=== PATIENT | male | born 1995 | race Caucasian/White ===

== ENCOUNTER 2018-03-20 19:42 | Emergency (ER) | payer MEDICAID, SELFPAY ==
[2018-03-20 19:43] VITALS: BP 119/75; PULSE 119; RESP 17; TEMP 37.1; O2SAT 99; BMI 18.3
--- NOTE | 2018-03-20 20:42 | ED.DCSUM_ITS ---
- ER Visit Summary Date of Service: 03/20/18 Chief Complaint: Sore throat History of Present Illness: The patient is a 22 M presenting with sore throat. He states this started yesterday. Patient is concerned because he kissed someone who was diagnosed with bronchitis. He has sore throat and painful swallowing. No difficulty swallowing. No fever. He has a mild dry cough. Denies other complaints. Physical Examination: Vitals are stable. Patient is afebrile. Alert no acute distress. HEENT exam mild pharyngeal erythema, uvula midline Neck is supple. No meningismus Lungs are clear and equal bilaterally. Heart is regular rate and rhythm. Extremities are unremarkable. Skin is warm and dry. No rash Remainder of exam is unremarkable. Emergency Department Course and Treatment: Rapid strep was negative. He is given Decadron p.o. Advised to follow-up with Dr. Orosco pianos and organs salesperson for no doc. Advised return to ED if worsening complaints. Disposition: Discharge home Impression: Pharyngitis This note was generated with [employer] dictation software. It may contain incorrect words, spelling, and punctuation that were not noted in review of the chart prior to signing ED Disposition - Plan for ED Patient: Chief Complaint: Sore Throat Referrals: Care Physician,No Primary [Primary Care Provider] -
--- NOTE | 2018-03-20 20:42 | ED.DEP ---
ED Disposition - Plan for ED Patient: Chief Complaint: Sore Throat Instructions: ED Pharyngitis Viral Referrals: Care Physician,No Primary [Primary Care Provider] - Eliseo Orosco III, MD [STAFF PHYSICIAN] -
[2018-03-20 20:49] VITALS: PULSE 102; RESP 16; O2SAT 97
== END 2018-03-20 20:49 | disposition home or self-care (01) ==
LOC: ED 20:04
PROVIDERS: Emergency Provider Emergency Medicine
DX: J02.9 Acute pharyngitis, unspecified (principal)
CPT/HCPCS: 87880; 99283

== ENCOUNTER 2018-08-31 04:36 | Emergency (ER) | payer SELFPAY ==
[2018-08-31 04:37] VITALS: BP 130/93; PULSE 99; RESP 18; TEMP 36.9; O2SAT 99; BMI 21.4
--- NOTE | 2018-08-31 04:43 | ED.DCSUM_ITS ---
- ER Visit Summary Date of Service: 08/31/18 Chief Complaint: Rash History of Present Illness: The patient is a 23 M presenting for evaluation secondary to rash. Patient states that he has broken out in a rash over the course of the last 2-3 days. He states that it is all on the right side of his chest and seems to be spreading towards the midline of his chest and midline of his back. He reports that it itches and juarez. He does endorse that he had a history of chickenpox as a child denies any exposures recently denies any fevers or oral lesions. Physical Examination: Skin exam shows evidence of a herpetic type rash that is dermatomal over the patient's left chest and back Test Results: None indicated Emergency Department Course and Treatment: Patient presented with a rash consistent with shingles. Patient will be treated with acyclovir. Disposition: Discharge Impression: 1. Herpes zoster This note was generated with [employer] dictation software. It may contain incorrect words, spelling, and punctuation that were not noted in review of the chart prior to signing ED Disposition - Plan for ED Patient: Disposition: Home or Assisted Living Chief Complaint: Rash Diagnosis: Shingles Instructions: ED Shingles Prescriptions: Acyclovir [Zovirax] 800 mg PO 5X/DAY #35 tab Referrals: Mira Umanzor [NON-STAFF] - As Needed
[2018-08-31 04:51] VITALS: BP 128/72; PULSE 95; RESP 18; O2SAT 98
[2018-08-31] MEDS: Acyclovir 800 MG Tablet PO (04:51)
== END 2018-08-31 04:54 | disposition home or self-care (01) ==
LOC: ED 04:53
PROVIDERS: Emergency Provider Emergency Medicine
DX: B02.9 Zoster without complications (principal)
CPT/HCPCS: 99282

== ENCOUNTER 2019-03-05 15:27 | Emergency (ER) | payer SELFPAY ==
[2019-03-05 15:28] VITALS: BP 131/75; PULSE 98; RESP 16; TEMP 36.7; O2SAT 98; BMI 20.9
--- NOTE | 2019-03-05 16:15 | ED.VISSUMM ---
- ER Visit Summary Date of Service: 03/05/19 Chief Complaint: Dental pain History of Present Illness: The patient is a 23 M who complains of a one-month history of right-sided dental pain. He states the right upper tooth is broken and has root exposed. He thinks the right bottom teeth are starting to decay also. He is been taking 1 [id number] ibuprofen a day. [facility]. Physical Examination: Vital signs are unremarkable. Patient sitting upright in bedside chair no acute distress. Head neck examination was no facial edema or erythema. Intraoral examination reveals right maxillary second molar to be broken on the posterior surface. There is no gum edema. He has small areas of caries on the right first and second molars on the mandibular surface. No gum edema. Uvula is midline. Test Results: [] Emergency Department Course and Treatment: Patient be treated with Naprosyn and Pen-Vee K, first doses given here. He is given a dental referral list. Treatment Plan: [] Disposition: Discharge Impression: Odontalgia This note was generated with [employer] dictation software. It may contain incorrect words, spelling, and punctuation that were not noted in review of the chart prior to signing ED Disposition - Plan for ED Patient: Disposition: Home or Assisted Living Instructions: ED Tooth Pain Prescriptions: Naproxen [Naprosyn] 500 mg PO BID PRN PRN #20 tablet PRN Reason: Pain Penicillin V Potassium 500 mg PO 4X/DAY #40 tablet Additional Instructions: Dental referral list provided.
[2019-03-05] MEDS: Penicillin Vk 250 MG Tablet 500 MG PO (16:35)
[2019-03-05] MEDS: Naproxen 500 MG Tablet PO (16:35)
[2019-03-05 16:38] VITALS: BP 117/74; PULSE 65; RESP 18
== END 2019-03-05 16:39 | disposition home or self-care (01) ==
PROVIDERS: Emergency Provider Emergency Medicine
DX: S02.5XXA Fracture of tooth (traumatic), initial encounter for closed fracture (principal); X58.XXXA Exposure to other specified factors, initial encounter; K02.9 Dental caries, unspecified; Z72.0 Tobacco use
CPT/HCPCS: 99283

== ENCOUNTER 2020-03-14 18:14 | Emergency (ER) | payer SELFPAY ==
[2020-03-14 18:16] VITALS: BP 150/75; PULSE 81; RESP 14; TEMP 36.6; O2SAT 100; BMI 24.2
--- NOTE | 2020-03-14 18:28 | ED.DCSUM_ITS ---
History of Present Illness Chief Complaint: Fall Informant: Patient Onset: Today Narrative: Patient states that he was climbing a tree when he fell out of it. He landed on his feet quickly rolled to the side. In the process he states that his lower left leg got bent laterally causing injury to his knee. He states that he cannot fully extend the knee. He notes pain laterally. He has not been able to bear weight. Past Medical History - Allergies and Home Meds Allergies/Adverse Reactions: Allergies clindamycin Allergy (Verified 03/14/20 18:15) Rash Primary Care Physician: Yanick Concepcion MD [STAFF PHYSICIAN] - (call for appointment to be seen in office next week) Smoking Status: Current every day smoker Review of Systems General: Denies: Chills, Fever, Sweats Eyes: Denies: Visual changes - bilaterally, Diplopia ENT: Denies: Rhinorrhea, Sore throat Cardiovascular: Denies: Chest pain, Palpitations Respiratory: Denies: Dyspnea, Cough, Dyspnea on exertion Gastrointestinal: Denies: Abdominal pain, Nausea, Vomiting, Diarrhea, Melena, Hematochezia Genitourinary: Denies: Dysuria, Hematuria, Frequency Musculoskeletal: Reports: Extremity Pain. Denies: Back pain Skin: Denies: Rash, Wounds Neurological: Denies: Headache, Weakness, Numbness Physical Exam Vital Signs/Narrative: Vital Signs Temp Pulse Resp BP Pulse Ox 03/14/20 18:16 97.9 F 81 14 150/75 H 100 Inital Vital Signs reviewed: Yes General: Well nourished, Well developed, No Acute Distress Head: Normocephalic, Atraumatic Eyes: Perrl, EOMI ENT: Moist mucous membranes, No rhinorrhea Neck: Supple, Nontender Cardiovascular: Regular rate, Regular rhythm, No murmurs Respiratory: No distress, CTA bilaterally, Chest nontender Abdomen: Soft, Nontender, Nondistended, Normal bowel sounds Back: Nontender, Normal Inspection Extremities: Tenderness - There is diffuse tenderness to palpation about the knee. There is superficial abrasions. I am able to extend the knee. Patella appears intact. Patient has significant guarding and precludes adequate ligamentous testing. Small effusion is felt. Skin: Normal color, No rash Neurological: Alert, Oriented x3, Cranial nerves II-XII grossly intact, Normal Strength, Normal Sensation Psychological: Normal affect, Normal Mood Diagnostic/Tx/Re-eval - Medical Decision Making Patient received a dose of Toradol and oxycodone. X-rays reveal calcification laterally to the lateral femoral condyle. I spoke with orthopedics Dr. Concepcion. Our plan is to place him in a knee immobilizer and crutches pain medication and he will follow-up in the office next week. I informed the patient of the findi ngs. He must be doing better because he spends most of the conversation playing a game on his phone. He tells me that he is interested in what I have to say. ED Disposition - Plan for ED Patient: Disposition: Home or Assisted Living Diagnosis: Fall from tree, initial encounter, Left knee pain, Avulsion fracture of bone Prescriptions: Oxycodone HCl/Acetaminophen [Percocet 5/325] 1 tab PO Q6H PRN PRN 3 Days #12 tab PRN Reason: Pain Prescription Printed Referrals: Yanick Concepcion MD [STAFF PHYSICIAN] - (call for appointment to be seen in office next week)
[2020-03-14] MEDS: oxyCODONE 5 MG Tablet 10 MG PO (18:37)
--- NOTE | 2020-03-14 18:45 | RAD_ITS ---
STUDY: X-RAY - LEFT KNEE REASON FOR EXAM: Male, 24 years old. FELL OUT OF TREE -- LEFT LEG PAIN TECHNIQUE: 3 view(s) of the knee. COMPARISON: None. FINDINGS: Normal visualized distal femur. Normal visualized proximal tibia and fibula. Normal proximal tibiofibular articulation. Normal medial femorotibial compartment. Normal lateral femorotibial compartment. Normal patellofemoral articulation. There is a small calcific fragment lateral to the lateral joint space measuring 1.2 cm x 0.4 cm. RAD/Knee 3 Views IMPRESSION: Small calcific fragment lateral to the lateral joint space measuring 1.2 x 0.4 cm. This may represent soft tissue calcification or old injury. This does not appear to represent acute injury. Electronically Signed: Zion Walker MD at 19:07 EDT , Service support ,
[2020-03-14] MEDS: Diphth,Pertuss(Acell),Tet Vac 0.5 ML Vial IM (18:56)
[2020-03-14 19:44] VITALS: BP 129/86; PULSE 86; RESP 19; O2SAT 97
== END 2020-03-14 20:00 | disposition home or self-care (01) ==
PROVIDERS: Emergency Provider Emergency Medicine
DX: S72.422A Displaced fracture of lateral condyle of left femur, initial encounter for closed fracture (principal); W14.XXXA Fall from tree, initial encounter; Y93.39 Activity, other involving climbing, rappelling and jumping off; Y99.9 Unspecified external cause status; F17.200 Nicotine dependence, unspecified, uncomplicated; Z88.1 Allergy status to other antibiotic agents
CPT/HCPCS: 73562; 90715; 99284

== ENCOUNTER 2020-04-06 16:41 | Emergency (ER) | payer MEDICAID, SELFPAY ==
[2020-04-06 16:42] VITALS: BP 117/80; PULSE 102; RESP 15; TEMP 36; O2SAT 95; BMI 22.5
--- NOTE | 2020-04-06 17:19 | ED.DEP ---
ED Disposition - Plan for ED Patient: Instructions: ED Pharyngitis Viral Prescriptions: Naproxen [Naprosyn] 500 mg PO BID PRN #20 tablet Referrals: Care Physician,No Primary [Primary Care Provider] - Eliseo Orosco III, MD [STAFF PHYSICIAN] -
--- NOTE | 2020-04-06 17:21 | ED.VISSUMM ---
- ER Visit Summary Date of Service: 04/06/20 Chief Complaint: Sore throat History of Present Illness: The patient is a 24 M presenting with sore throat. He states this started yesterday. He has painful swallowing but no difficulty swallowing. No drooling. No fever. He denies rhinorrhea, cough, other symptoms. Physical Examination: Vitals are stable. Patient is afebrile. Alert no acute distress. HEENT exam bilateral exudate, uvula midline, tonsils symmetric Neck is supple. No meningismus Lungs are clear and equal bilaterally. Heart is regular rate and rhythm. Extremities are unremarkable. Skin is warm and dry. No rash No focal neurologic deficit. Remainder of exam is unremarkable. Emergency Department Course and Treatment: I have high suspicion for strep pharyngitis. He was given Bicillin IM. He was given Decadron and Naprosyn. Advised to follow-up with Dr. Orosco superannuation funds manager for no doctor. Advised return to the ED for worsening complaints. Disposition: Discharge home Impression: Pharyngitis This note was generated with [employer] dictation software. It may contain incorrect words, spelling, and punctuation that were not noted in review of the chart prior to signing ED Disposition - Plan for ED Patient: Instructions: ED Pharyngitis Viral Prescriptions: Naproxen [Naprosyn] 500 mg PO BID PRN #20 tab Prescription Printed Referrals: Eliseo Orosco III, MD [STAFF PHYSICIAN] - Care Physician,No Primary [Primary Care Provider] -
[2020-04-06] MEDS: dexAMETHasone 4 MG Tablet PO (17:38)
[2020-04-06] MEDS: Penicillin G Benzathine 1.2 MU/2 ML Syringe IM (17:39)
== END 2020-04-06 17:44 | disposition home or self-care (01) ==
PROVIDERS: Emergency Provider Emergency Medicine
DX: J02.9 Acute pharyngitis, unspecified (principal); Z72.0 Tobacco use
CPT/HCPCS: 96372; 99283

== ENCOUNTER 2020-05-01 05:30 | Day surgery (SDC) | payer MEDICAID, SELFPAY ==
[2020-05-01] VITALS (8 sets, daily range): BP systolic 122–147; BP diastolic 75–98; PULSE 63–82; RESP 14–16; TEMP 36.3–37; O2SAT 16–100; BMI 22.4
[2020-05-01] MEDS: Lactated Ringers 1,000 ML 100 ML IV ×2 (06:24→10:28)
[2020-05-01] MEDS: Epinephrine (1 mg/ml) 1 MG/ML VIAL (07:15)
[2020-05-01] MEDS: Cefazolin 2 GM in 0.9% Normal Saline 100 ML IV (07:30)
[2020-05-01] MEDS: Bupiv/Epi 0.5% Mpf 30 ML Vial (09:00)
--- NOTE | 2020-05-01 09:20 | PCM.OPRPT ---
Report of Operation Date of Procedure: 05/01/20 Pre-Operative Diagnosis: Left knee MMT,LMT and ACL tears Post-Operative Diagnosis: same Surgery/Procedure Performed:: Arthroscopic medial meniscus repair, partial lateral meniscectomy and ACL reconstruction with 9 mm tibialis posterior allograft supervisor aircraft cleaning: Nash Ferguson Type of Anesthesia:: General/Regional Anesthesiologist: Gadiel Mock - Admit VTE Documentation VTE Present on Admission: No VTE Mechan Device Prophylaxis: SCD's, Thigh High LAVELLE Hose VTE Pharm Prophylaxis ordered?: Yes
== END 2020-05-01 11:57 | disposition home or self-care (01) ==
LOC: SDC 05:32 → AC 05:34
PROVIDERS: Anesthesiology; Referring Provider Orthopaedic Surgery; Visit Provider Orthopaedic Surgery
PROC: (CPT 29888; principal; 2020-05-01 07:10)
DX: S83.512A Sprain of anterior cruciate ligament of left knee, initial encounter (principal); S83.232A Complex tear of medial meniscus, current injury, left knee, initial encounter; S83.252A Bucket-handle tear of lateral meniscus, current injury, left knee, initial encounter; Z11.59 Encounter for screening for other viral diseases; X58.XXXA Exposure to other specified factors, initial encounter; Y93.9 Activity, unspecified; Y92.9 Unspecified place or not applicable; Y99.9 Unspecified external cause status; F32.9 Major depressive disorder, single episode, unspecified; F41.9 Anxiety disorder, unspecified; F17.210 Nicotine dependence, cigarettes, uncomplicated
CPT/HCPCS: 01400; 29881; 29882; 29888; 64447; 76942; 87635; C1713; C9803; G2023; J7120; J2405; U0003

== ENCOUNTER 2020-05-09 12:14 | Emergency (ER) | payer MEDICAID, SELFPAY ==
[2020-05-01 06:16] VITALS: BMI 22.4
[2020-05-09 12:15] VITALS: BP 150/90; PULSE 100; RESP 15; TEMP 36.2; O2SAT 94; BMI 21.2
--- NOTE | 2020-05-09 12:48 | ED.DCSUM_ITS ---
- ER Visit Summary Date of Service: 05/09/20 Chief Complaint: [Redness and swelling to right eye] History of Present Illness: The patient is a 24 M [Presents to the emergency department with redness and swelling to the right eye that started 2 days ago. Patient initially felt like there was something in his eyelashes and felt itchy. Patient started noting drainage to the eye this morning. He denies any trauma to the eye. He denies any foreign bodies to the eye. He denies real visual changes. He denies painful eye movements. He has had no fever or recent illness.] Physical Examination: [HEENT-PERRLA, EOMI. Cranial nerves II through XII grossly intact. TMs clear. Mucous membranes moist. No adenopathy. Right eye- patient does have some erythema noted to upper and lower lids with some irritation. He is got some drainage noted in the medial canthus as well as the lateral canthus. Eye movements are painless. No foreign bodies noted as eyelids were everted. There was no evidence of corneal abrasions. He had some subtle conjunctival erythema diffusely. Cardiovascular-regular rate and rhythm without murmur or ectopy Lungs-clear to auscultation, chest wall stable without crepitus or subcu emphysema Abdomen-normoactive bowel sounds, soft, nontender, no rebound or rigidity, no peritoneal signs. Extremities-intact ?4, normal range of motion, normal pulses, atraumatic] Test Results: [None indicated] Emergency Department Course and Treatment: [Patient will be started on gentamicin ophthalmic ointment. Patient will be referred to ophthalmology for follow-up.] Treatment Plan: [Follow-up with ophthalmology and will treat with gentamicin ophthalmic ointment.] Disposition: [Discharged home in stable condition] Impression: [Conjunctivitis right eye] This note was generated with [employer] dictation software. It may contain incorrect words, spelling, and punctuation that were not noted in review of the chart prior to signing ED Disposition - Plan for ED Patient: Referrals: Care Physician,No Primary [Primary Care Provider] -
--- NOTE | 2020-05-09 12:50 | ED.DEP ---
ED Disposition - Plan for ED Patient: Instructions: ED Conjunctivitis Bacterial Referrals: Care Physician,No Primary [Primary Care Provider] - Justice Medina MD [STAFF PHYSICIAN] - 3-5 Days
== END 2020-05-09 13:00 | disposition home or self-care (01) ==
LOC: ED 12:57
PROVIDERS: Emergency Provider Emergency Medicine
DX: H10.9 Unspecified conjunctivitis (principal); Z72.0 Tobacco use
CPT/HCPCS: 99282

== ENCOUNTER → 2020-05-14 14:44 | Outpatient (CLI) | payer MEDICAID, SELFPAY ==
[2020-05-09 12:15] VITALS: BMI 21.2
--- NOTE | 2020-05-14 14:47 | VDLE_ITS ---
Reason For Study: pain Procedure LEFT Exam performed in department. GSV is normal. The exam was abbreviated due to the COVID 19 CFV is compressible, spontaneous, phasic, protocol. competent, and demonstrates normal The exam was diagnostic. augmentation. A preliminary report was called and/or faxed FV is compressible, spontaneous, phasic, to Dave Ferguson PA-C. competent and demonstrates normal Pt to go to ED per Dave Ferguson PA-C. augmentation. POP V is compressible, spontaneous, phasic, competent and demonstrates normal augmentation. T/P Trunk is compressible. PTV is compressible. Peroneal V and Gastroc V are dilated and noncompressible. Interpretation Summary Acute deep vein thrombosis is noted in the left peroneal vein. Acute deep vein thrombosis is noted in the left gastrocnemius vein. The remainder of the left lower extremity deep venous system is patent and compressible. Valvular competence appears intact within the proximal deep venous system on the left . The left great saphenous vein appears patent and compressible segmentally. Ordering Physician: Nash Ferguson Performed By: Asim Ochoa RVT
== END ==
PROVIDERS: Referring Provider Physician Assistant; Visit Provider Physician Assistant
DX: M79.662 Pain in left lower leg (principal); S83.252D Bucket-handle tear of lateral meniscus, current injury, left knee, subsequent encounter; X58.XXXD Exposure to other specified factors, subsequent encounter
CPT/HCPCS: 93971

== ENCOUNTER 2020-05-14 15:17 | Emergency (ER) | payer MEDICAID, SELFPAY ==
[2020-05-14 15:18] VITALS: BP 120/74; PULSE 88; RESP 16; TEMP 36.6; O2SAT 98; BMI 22.2
--- NOTE | 2020-05-14 16:03 | ED.DCSUM_ITS ---
- ER Visit Summary Date of Service: 05/14/20 Chief Complaint: Left calf pain History of Present Illness: The patient is a 24 M who had a left ACL/meniscus done by Dr. Gonzales on May 01. He reports he began having pain in his left calf 5 days ago. He was seen by the PA today and sent for an ultrasound of his leg. This showed that he did have a clot and he was sent to the emergency department. Patient denies any chest pain or shortness of breath. Patient reports that his knee is healing well. Physical Examination: Vitals: Stable. Afebrile. General: Well-nourished and well-developed. Head: Normocephalic atraumatic. Neck: Supple, no lymphadenopathy. No JVD. Nontender. Cardiovascular: Regular rate and rhythm. No murmurs. Respiratory: No respiratory distress. Clear to auscultation bilaterally. Abdominal: Soft, nontender, nondistended, normal bowel sounds. No guarding, rebound, or peritoneal signs. Back: Nontender. Extremities: Mild tenderness palpation over the left calf, no edema. Left knee incisions are healing well. They are clean, dry, and intact. There is no overlying erythema or warmth to suggest a septic joint. He has no pain with short arc movements. He is neuro vas intact distally. Skin: Normal color, no rash. Neurologic: Alert and oriented ?3. Cranial nerves II through XII are intact. Normal strength and sensation. Psych: Normal affect. Test Results: Ultrasound showed him to have a left gastrocnemius/peroneal thrombus. Emergency Department Course and Treatment: Patient was given a dose of Eliquis. He is resting comfortably. Treatment Plan: Patient was discussed with Dr. Benjamin Hanna who asked that I speak with a primary care physician. Patient discussed Dr. Judson De La Rosa who agrees with placing him on Eliquis and would like him to follow-up next week. Follow-up with Dr. Trujillo as previously scheduled. Return to the emergency department for any worsening symptoms. Disposition: To home in improved and stable condition. Impression: 1. Status post left ACL/meniscus repair May 01, 2020. 2. Left gastrocnemius/peroneal thrombus. This note was generated with [employer] software. It may contain incorrect words, spelling, and punctuation that were not noted in review of the chart prior to signing ED Disposition - Plan for ED Patient: Disposition: Home or Assisted Living Instructions: ED DVT Prescriptions: Apixaban [Eliquis] 5 mg PO BID #74 tab Prescription Printed Referrals: Judson De La Rosa MD [STAFF PHYSICIAN] - 1 Week
[2020-05-14] MEDS: APIXABAN 5 MG TABLET 10 MG PO (16:21)
[2020-05-14 16:27] VITALS: BP 118/69; PULSE 98; RESP 18; TEMP 36.3; O2SAT 99
== END 2020-05-14 16:28 | disposition home or self-care (01) ==
LOC: ED 15:50
PROVIDERS: Emergency Provider Emergency Medicine
DX: I82.452 Acute embolism and thrombosis of left peroneal vein (principal); I82.462 Acute embolism and thrombosis of left calf muscular vein; Z98.890 Other specified postprocedural states; Z72.0 Tobacco use
CPT/HCPCS: 93971; 99283

== ENCOUNTER 2020-11-13 20:48 | Emergency (ER) | payer MEDICAID, SELFPAY ==
[2020-11-13 20:49] VITALS: BP 143/79; PULSE 76; RESP 16; TEMP 36.3; O2SAT 97; BMI 22.6
--- NOTE | 2020-11-13 21:11 | ED.VISSUMM ---
- ER Visit Summary Date of Service: 11/13/20 Chief Complaint: [Redness and swelling to the right forearm] History of Present Illness: The patient is a 25 M [presents to the emergency department with redness and swelling to the right forearm that he noticed yesterday. Patient denies any injury to the area. He denies any puncture wounds. He denies any insect bites that he knows of. Patient denies using IV drugs. He denies injecting drugs into his arm. He denies fevers. Patient states the area was itchy and he try to squeeze it but nothing came out. Patient states that he has not used drugs in over 8 months and he only used marijuana which she smoked and he snorted methamphetamines but has never been an IV drug user. Patient does smoke cigarettes.] Physical Examination: [TAI-PERRLAXIOMARAMI. Cranial nerves II through XII grossly intact. TMs clear. Mucous membranes moist. No adenopathy. Cardiovascular-regular rate and rhythm without murmur or ectopy Lungs-clear to auscultation, chest wall stable without crepitus or subcu emphysema Abdomen-normoactive bowel sounds, soft, nontender, no rebound or rigidity, no peritoneal signs. Extremities-intact ?4, normal range of motion, normal pulses, atraumatic. Right forearm-in the central portion of the ulnar forearm there is a soft tissue swelling measuring approximately 4 cm x 3 cm with a central umbilicated opening slightly scabbed over but measures approximately 2 mm in diameter. No drainage noted from the wound. There is no fluctuance to this wound. He is neurovascular intact distally. No lymphangitic streaking.] Test Results: [None indicated] Emergency Department Course and Treatment: [Patient was given Keflex and Bactrim p.o.] Treatment Plan: [At this point the soft tissue swelling I suspect may be cellulitis versus early abscess however cannot rule out allergic reaction to potential insect sting. He is advised to use Benadryl for the itching and he will be started on Keflex and Bactrim. There is really nothing amenable to I&D at this time. Patient advised to return if increasing pain, redness, swelling or if the redness should extend beyond the marked regions with permanent marker.] Disposition: [Discharged home in stable condition] Impression: [Cellulitis/early abscess right forearm] This note was generated with Dragon dictation software. It may contain incorrect words, spelling, and punctuation that were not noted in review of the chart prior to signing ED Disposition - Plan for ED Patient: Referrals: Care Physician,No Primary [Primary Care Provider] -
--- NOTE | 2020-11-13 21:14 | ED.DEP ---
ED Disposition - Plan for ED Patient: Prescriptions: Smz/Tmp Ds [Bactrim Ds] 1 tab PO BID #20 tab Prescription Printed Cephalexin [Keflex] 500 mg PO Q6 #40 cap Prescription Printed Referrals: Care Physician,No Primary [Primary Care Provider] - Shawn Craven MD [STAFF PHYSICIAN] - 3-5 Days
[2020-11-13] MEDS: Cephalexin 250 MG Capsule 500 MG PO (21:27)
[2020-11-13] MEDS: Smz/Tmp Ds Tablet 1 TABLET PO (21:27)
[2020-11-13 21:29] VITALS: RESP 16
== END 2020-11-13 21:29 | disposition home or self-care (01) ==
LOC: ED 21:18
PROVIDERS: Emergency Provider Emergency Medicine
DX: L03.113 Cellulitis of right upper limb (principal); L02.413 Cutaneous abscess of right upper limb; F17.210 Nicotine dependence, cigarettes, uncomplicated
CPT/HCPCS: 99283

== ENCOUNTER 2020-11-14 20:52 | Emergency (ER) | payer MEDICAID, SELFPAY ==
[2020-11-13 20:49] VITALS: BMI 22.6
[2020-11-14 20:53] VITALS: BP 118/76; PULSE 81; RESP 16; TEMP 36.6; O2SAT 98; BMI 21.9
--- NOTE | 2020-11-14 21:04 | ED.DCSUM_ITS ---
History of Present Illness Chief Complaint: Cellulitis Informant: Patient Onset: Days - 2 days Context: Gradual Onset Current Severity: Mild Maximum Severity: Mild Narrative: Patient presents with continued bedrest to the right forearm. Patient was seen in the ER last evening, the , with 4 x 3 cm area of erythema on the right mid forearm. No known injury. Denies IV drug use. No focal fluctuance amenable to I&D. Patient was given a dose of Bactrim and Keflex in the ER last night. Patient states that he slept all day today did not scrap picker his medications until this evening. He is only taken 1 additional dose of Bactrim and Keflex. He states he noted the erythema to be outside the initial outlined area and wanted to have it rechecked. He denies fever or chills. Past Medical History - Allergies and Home Meds Allergies/Adverse Reactions: Allergies clindamycin Allergy (Verified 11/13/20 20:48) Rash Primary Care Physician: Shawn Craven MD [STAFF PHYSICIAN] - As Needed Past Medical History: None Surgical History: - - Knee surgery Smoking Status: Current every day smoker Review of Systems General: Denies: Chills, Fever Eyes: Denies: Visual changes - bilaterally ENT: Denies: Bilateral ear pain Cardiovascular: Denies: Chest pain Respiratory: Denies: Dyspnea, Cough Gastrointestinal: Denies: Abdominal pain Musculoskeletal: Reports: Extremity Pain Skin: Reports: Abscess Hematologic: Denies: Easy bruising, Easy bleeding Allergy: Denies: Uticaria Physical Exam Vital Signs/Narrative: Vital Signs Temp Pulse Resp BP Pulse Ox 11/14/20 20:53 97.8 F 81 16 118/76 98 Inital Vital Signs reviewed: Yes General: Well nourished, Well developed Head: Normocephalic ENT: Moist mucous membranes Neck: Supple Cardiovascular: Regular rate, Regular rhythm Respiratory: No distress, CTA bilaterally Abdomen: Soft, Nontender Extremities: - - Area of erythema measures approximately 6 x 3 cm. There is very mild lymphangitic streak on the forearm. Neurological: Alert, Oriented x3, Normal Strength, Normal Sensation Psychological: Normal affect Diagnostic/Tx/Re-eval Laboratory Results 11/14/20 11/14/20 21:15 21:15 WBC 9.6 RBC 5.83 Hgb 16.8 H Hct 49.8 MCV 85.4 MCH 28.8 MCHC 33.7 RDW Std Deviation 41.7 RDW Coeff of Mary Ellen 13.5 Plt Count 271 MPV 8.7 Immature Gran % (Auto) 0.200 Neut % (Auto) 68.6 Lymph % (Auto) 21.8 [place] % (Auto) 7.4 Eos % (Auto) 1.5 Baso % (Auto) 0.5 Absolute Neuts (auto) 6.6 Absolute Lymphs (auto) 2.09 Nucleated RBC % 0 Sodium 137 Potassium 3.5 Chloride 103 Carbon Dioxide 28.0 Anion Gap 6 BUN 14 Creatinine 1.26 Estim Creat Clear Calc 78.20 Est GFR (MDRD) Af Amer 90 Est GFR (MDRD) Non-Af 74 BUN/Creatinine Ratio 11.1 Glucose 78 Calcium 9.0 - Medical Decision Making Blood work is obtained. White count is normal and no left shift noted. Blood cultures have been sent. At this time patient is only had 2 doses of antibiotic. I do not believe he needs admission for failed therapy at this time. He instructed to take his medications as prescribed and if no significant improvement noted in 48 hours should be reevaluated. ED Disposition - Plan for ED Patient: Disposition: Home or Assisted Living Diagnosis: Cellulitis Instructions: ED Cellulitis Referrals: Shawn Craven MD [STAFF PHYSICIAN] - As Needed
[2020-11-14 21:28] LABS: Absolute Lymphocyte Count 2.09 X10^3/uL (0.83-4.51); Absolute Neutrophil Count 6.6 X10^3/uL (2.0-7.7); Basophil# 0.05 X10^3/uL; Basophil% 0.5 % (0-1); Eosinophil# 0.14 X10^3/uL; Eosinophils% 1.5 % (0-5); Hematocrit 49.8 % (40-54); Hemoglobin 16.8 g/dL (13.0-16.5); Lymphocyte # 2.09 X10^3/ul (4.0); Lymphocyte % 21.8 % (19-41); Mean Corp Hgb Conc 33.7 g/dL (32-36); Mean Corpuscular Hgb 28.8 pg (27.0-32.0); Mean Corpuscular Volume 85.4 fL (80-94); Mean Platelet Vol. 8.7 fl (6.2-12.0); Monocyte# 0.71 X10^3/uL; Monocyte% 7.4 % (0-10); NRBC Flagged by Analyzer 0 % (0-5); Neutrophil # 6.56 X10^3/uL (2.7-7.7); Neutrophil % 68.6 % (47-70); Platelet Count 271 K/mm3 (150-450); RBC Distribution Width CV 13.5 % (11.6-14.6); RBC Distribution Width SD 41.7 fl (35.1-43.9); Red Blood Count 5.83 M/mm3 (4.6-6.2); White Blood Count 9.6 K/mm3 (4.4-11.0)
[2020-11-14 21:58] LABS: Anion Gap 6 (5-15); BUN 14 mg/dL (7-18); BUN/Creat Ratio 11.1 RATIO (10-20); Chloride 103 mmol/L (98-107); Creatinine, Serum 1.26 mg/dL (0.70-1.30); EST Glomerular Filtration Rate 74 mL/min (>60); Est Glom Filt Rate - Afr Amer 90 mL/min (>60); Glucose 78 mg/dL (74-106); Potassium 3.5 mmol/L (3.5-5.1); Sodium Level 137 mmol/L (136-145)
[2020-11-14 22:19] VITALS: BP 118/79; PULSE 64; RESP 15; O2SAT 99
== END 2020-11-14 22:19 | disposition home or self-care (01) ==
PROVIDERS: Emergency Provider Emergency Medicine
DX: L03.113 Cellulitis of right upper limb (principal); F17.200 Nicotine dependence, unspecified, uncomplicated
CPT/HCPCS: 80048; 85025; 87040; 99283; A4216

== ENCOUNTER → 2021-07-27 22:34 | Outpatient (CLI) | payer MEDICAID, SELFPAY ==
[2021-07-30 03:07] LABS: Covid Inpatient test code BILL Performed (.)
== END ==
PROVIDERS: Visit Provider Physician Assistant Surgical
DX: R05 Cough (principal)
CPT/HCPCS: 87635; U0005; U0003

== ENCOUNTER 2021-12-08 17:32 | Emergency (ER) | payer MEDICAID, SELFPAY ==
[2021-12-08 17:33] VITALS: BP 126/82; PULSE 88; RESP 16; TEMP 36.5; O2SAT 98; BMI 22.0
--- NOTE | 2021-12-08 18:54 | ED.RN ---
PT REPORTS HE IS TIRED OF WAITING AND WILL GO BE SEEN AT [facility]RGENT [facility] TOMORROW. LWBS AT 1855.
== END 2021-12-08 18:55 | disposition left against medical advice (07) ==
LOC: ED 18:57
PROVIDERS: PCP Internal Medicine
DX: R69 Illness, unspecified (principal); Z53.21 Procedure and treatment not carried out due to patient leaving prior to being seen by health care provider

== ENCOUNTER 2022-05-08 13:30 | Emergency (ER) | payer MEDICAID, SELFPAY ==
[2022-05-08 13:31] VITALS: BP 147/92; PULSE 71; RESP 15; TEMP 36.4; O2SAT 98; BMI 20.9
[2022-05-08 13:33] VITALS: BP 147/92; PULSE 71; RESP 15; TEMP 36.4; O2SAT 98
--- NOTE | 2022-05-08 13:57 | EX.ED.VIS.UR ---
HPI HPI - URI History of Present Illness Chief Complaint: Sore Throat Narrative Narrative: 26-year-old male presenting with sore throat, tonsillar exudates, swollen lymph nodes. He states his niece has strep throat. He states he has not had a fever. His symptoms been ongoing for couple of days. He noticed pus pockets in his throat today. ROS ROS ED Constitutional Constitutional ED: Denies chills or fever(s) Eyes Eyes: Denies change in vision or diplopia ENT ENT ED: Reports sore throat Cardiovascular Cardiovascular: Denies chest pain or palpitations Respiratory/Chest Respiratory/Chest: Denies cough or dyspnea Gastrointestinal Gastrointestinal: Denies abdominal pain or constipation Genitourinary Genitourinary ED: Denies dysuria Musculoskeletal Musculoskeletal: Denies arthralgias or back pain Integumentary Denies abscess or Abrasions Neurologic Neurologic: Denies headache(s) or paresthesias Psychiatric Psychiatric: Denies anxiety or depression PFSH PFSH Home Medications amoxicillin 875 mg-potassium clavulanate 125 mg tablet 1 tab PO BID #20 tabs 05/08/22 [Rx Last Taken Unknown] Allergy/AdvReac Type Severity Reaction Status Date / Time clindamycin Allergy Rash Verified 05/08/22 13:34 Social History Smoking Status: Current every day smoker EXAM Physical Exam Const Vital Signs: 05/08/22 13:31 05/08/22 13:33 Temperature 97.5 F L 97.5 F L Temperature Source Temporal Temporal Pulse Rate 71 71 Respiratory Rate 15 15 Blood Pressure 147/92 H 147/92 H Blood Pressure Mean 110 110 Pulse Ox 98 98 Oxygen Delivery Method Room Air Room Air Positive well nourished and well developed General Appearance ED: well developed; Negative for pallor HEENT Reports moist mucous membranes normocephalic Throat: posterior oropharynx abnormal Positive for erythema and exudates Neck General: lymphadenopathy anterior cervical Resp normal respiratory effort and clear to auscultation bilaterally GI non-tender Neuro oriented x3 and CN's II-XII intact bilaterally Sensorium / Orientation: alert, oriented to person, oriented to place and oriented to time Skin General Skin Exam: Negative for jaundice or pallor MDM MDM MDM Narrative Medical decision making narrative: Patient exposed to strep. He has erythematous throat, exudates, lymphadenopathy. He wishes to be empirically treated. He does not want to be tested. We will start him on Augmentin for home. Patient use Tylenol and ibuprofen for pain and fevers. Return precautions discussed. Impression: 1. Strep pharyngitis Discharge Plan Triage Chief Complaint: Sore Throat ED Provider: Pedro Caruso Dx/Rx/DC Orders Instructions: ED Pharyngitis, Strep (Presumed) Prescriptions: New amoxicillin-pot clavulanate 875-125 mg tablet 1 tab PO BID Qty: 20 0RF Primary Care Provider: Oziel Cabrera Referrals: Oziel Cabrera MD [Primary Care Provider] - Disposition Disposition: Home, Self Care
[2022-05-08] MEDS: Amox/Clavulanate 875 MG Tablet PO (14:16)
[2022-05-08 14:32] VITALS: BP 124/78; PULSE 78; RESP 14; TEMP 37.2; O2SAT 99
== END 2022-05-08 14:33 | disposition home or self-care (01) ==
LOC: ED 14:27
PROVIDERS: Emergency Provider Student in an Organized Health Care Education/Training Program; PCP Internal Medicine; Visit Provider Student in an Organized Health Care Education/Training Program
DX: J02.0 Streptococcal pharyngitis (principal); F17.200 Nicotine dependence, unspecified, uncomplicated
CPT/HCPCS: 99283